=== PATIENT | female | born 2000 | race Caucasian/White ===

== ENCOUNTER 2020-09-17 22:10 | Inpatient (IN) ==
[2020-09-17] MEDS ORDERED: BUTORPHANOL 2 MG/ML VIAL IV PRN (22:18)
[2020-09-17 22:43] LABS: Basophils % 0.1 % (0.0-0.8); Eosinophils % 0.4 % (0.00-10.9); Hematocrit 34.5 VOL% (35.7-47.0); Hemoglobin 11.6 GM/DL (12.0-16.0); Immature Granulocytes % 0.5 %; Immature Granulocytes Absolute 0.05 #; Lymphocytes # 1.9 10*3/uL (1.4-4.0); Lymphocytes % 18.6 % (21.3-54.2); Mean Corpuscular HGB Conc 33.6 GM/DL (32-36); Mean Corpuscular Volume 83.1 FL (87-102); Monocytes % 5.5 % (1.7-12.7); Neutrophils % 74.9 % (38.7-73.9); Platelet Count 187 T/CUMM (130-400); Red Blood Count 4.15 MC/CUMM (3.8-5.5); Red Cell Distribution Width 15.3 % (9.3-17.3); White Blood Count 9.9 T/CUMM (4-12)
[2020-09-17 23:01] LABS: Alanine Aminotransferase 22 U/L (13-56); Albumin 2.9 G/DL (3.4-5.0); Alkaline Phosphatase 219 U/L (45-117); Aspartate Amino Transferase 17 U/L (0-37); Bilirubin,Total < 0.39 MG/DL (0.20-1.00); Blood Urea Nitrogen 9 MG/DL (7-18); Calcium 8.7 MG/DL (8.5-10.1); Carbon Dioxide 22 MMOL/L (21-32); Estimated Glom Filtration Rate 171 ML/MIN; Glucose 93 MG/DL (74-106); Osmolality,Calculated 279.3 MOS/KG (273-304); Potassium 3.9 MMOL/L (3.5-5.1); Sodium 141 MMOL/L (136-145); Total Protein 6.6 G/DL (6.4-8.2)
[2020-09-17] MEDS: LACTATED RINGERS 1,000 ML IV SCH (23:48)
[2020-09-18] MEDS: ONDANSETRON 4 MG/2 ML VIAL IV PRN ×3 (04:13→23:56)
[2020-09-18] MEDS: MEPERIDINE 50 MG/1 ML VIAL IV PRN ×5 (04:16→23:56)
[2020-09-18] MEDS: LACTATED RINGERS 1,000 ML IV SCH ×2 (07:00→16:51)
[2020-09-19] MEDS: MEPERIDINE 50 MG/1 ML VIAL IV PRN ×3 (01:58→06:26)
[2020-09-19] MEDS: OXYTOCIN/LR 20 UNIT/1,000 ML BAG IV SCH (04:18)
[2020-09-19] MEDS ORDERED: CITRIC ACID/SODIUM CITRATE 30 ML UDCUP PO ONE (06:16)
[2020-09-19] MEDS ORDERED: FAMOTIDINE 20 MG/2 ML VIAL IV ONE (07:20)
[2020-09-19] MEDS ORDERED: DEXAMETHASONE 4 MG/1 ML VIAL ONE (07:45)
[2020-09-19] MEDS ORDERED: ONDANSETRON 4 MG/2 ML VIAL ONE (07:45)
[2020-09-19] MEDS ORDERED: BUPIVACAINE SPINAL 0.75% 2 ML AMP SPINAL ONE (07:45)
[2020-09-19] MEDS ORDERED: METHYLERGONOVINE 0.2 MG/1 ML AMP ONE (07:54)
[2020-09-19] MEDS ORDERED: miSOPROStoL 200 MCG TABLET ONE (07:54)
[2020-09-19] MEDS ORDERED: OXYTOCIN/LR 20 UNIT/1,000 ML BAG IV ONE ×3 (07:54→09:42)
[2020-09-19] MEDS ORDERED: CARBOPROST TROMETHAMINE 250 MCG/ML AMP IM ONE (07:54)
[2020-09-19] MEDS ORDERED: ePHEDrine 50 MG/ML VIAL ONE (08:55)
[2020-09-19] MEDS ORDERED: PHENYLEPHRINE 1 MG/10 ML SYRINGE IV ONE ×2 (08:55→09:37)
[2020-09-19] MEDS ORDERED: fentaNYL 100 MCG/2 ML VIAL ONE (09:19)
[2020-09-19 09:22] LABS: Cord Arterial Blood HCO3 24.9 MMOL/L
[2020-09-19] MEDS ORDERED: ACETAMINOPHEN INJ 1,000 MG/100 ML VIAL IV ONE (09:22)
[2020-09-19 09:23] LABS: Cord Venous Blood PCO2 76.6 MMHG; Cord Venous Blood PO2 < 17
[2020-09-19] MEDS ORDERED: DIPH/TET/ACEL PERT BOOSTER VACCINE 0.5 ML VIAL IM ONE (09:42)
[2020-09-19] MEDS ORDERED: LANOLIN 50% CREAM 0.3 OZ TUBE TOP PRN (09:42)
[2020-09-19] MEDS ORDERED: oxyCODONE/ACETAMINOPHEN 5-325 MG TABLET PO PRN (09:42)
[2020-09-19] MEDS ORDERED: HYDROCORTISONE 2.5% RECTAL CREAM 30 GM TUBE TOP PRN (09:42)
[2020-09-19] MEDS ORDERED: ONDANSETRON 4 MG/2 ML VIAL IV PRN (09:42)
[2020-09-19] MEDS ORDERED: WITCH HAZEL PADS 100/JAR TOP PRN (09:42)
[2020-09-19] MEDS ORDERED: RHO(D) IMMUNE GLOBULIN 300 MCG SYRINGE IM ONE (09:42)
[2020-09-19] MEDS ORDERED: MEASLES/MUMPS/RUBELLA VACCINE 0.5 ML VIAL SUBCUT ONE (09:42)
[2020-09-19] MEDS ORDERED: BENZOCAINE 20%/MENTHOL 0.5% SPRAY 56 GM CAN TOP PRN (09:42)
[2020-09-19] MEDS ORDERED: ACETAMINOPHEN 325 MG TABLET PO PRN (09:42)
[2020-09-19] MEDS ORDERED: BISACODYL 10 MG SUPP RECTAL PRN (09:42)
[2020-09-19] MEDS ORDERED: IBUPROFEN 800 MG TABLET PO PRN (09:42)
[2020-09-19] MEDS: LACTATED RINGERS 1,000 ML IV SCH ×3 (10:36→18:27)
[2020-09-19] MEDS: ACETAMINOPHEN 500 MG TABLET PO SCH (18:15)
[2020-09-20] MEDS: oxyCODONE/ACETAMINOPHEN 5-325 MG TABLET PO PRN ×4 (00:30→19:30)
[2020-09-20 05:48] LABS: Basophils % 0.1 % (0.0-0.8); Eosinophils # 0.1 10*3/uL (0.0-0.87); Eosinophils % 0.4 % (0.00-10.9); Hematocrit 31.4 VOL% (35.7-47.0); Hemoglobin 10.5 GM/DL (12.0-16.0); Immature Granulocytes % 0.6 %; Immature Granulocytes Absolute 0.07 #; Lymphocytes # 2.3 10*3/uL (1.4-4.0); Lymphocytes % 18.9 % (21.3-54.2); Mean Corpuscular HGB Conc 33.4 GM/DL (32-36); Mean Corpuscular Volume 84.2 FL (87-102); Mean Platelet Volume 11.1 FL (9.6-12.0); Monocytes % 6.2 % (1.7-12.7); Neutrophils % 73.8 % (38.7-73.9); Platelet Count 161 T/CUMM (130-400); Red Blood Count 3.73 MC/CUMM (3.8-5.5); Red Cell Distribution Width 15.4 % (9.3-17.3); White Blood Count 12.3 T/CUMM (4-12)
[2020-09-20] MEDS: MULTIVITAMIN (PRENATAL) TABLET PO SCH (08:00)
[2020-09-20] MEDS: buPROPion XL 150 MG TABLET PO SCH (08:00)
[2020-09-20] MEDS: DOCUSATE SODIUM 100 MG CAPSULE PO SCH ×4 (08:00→20:38)
[2020-09-20] MEDS: MAGNESIUM HYDROXIDE SUSP 30 ML UDCUP PO PRN ×2 (09:06→19:30)
[2020-09-20] MEDS: SIMETHICONE CHEW 80 MG TABLET PO PRN (09:06)
[2020-09-20] MEDS: LACTATED RINGERS 1,000 ML IV SCH (18:12)
[2020-09-20] MEDS: OXYTOCIN/LR 20 UNIT/1,000 ML BAG IV SCH (18:13)
[2020-09-20] MEDS: ACETAMINOPHEN 500 MG TABLET PO SCH (18:14)
[2020-09-21] MEDS: oxyCODONE/ACETAMINOPHEN 5-325 MG TABLET PO PRN ×2 (01:45→08:40)
[2020-09-21 08:29] VITALS: BP 136/76
[2020-09-21] MEDS: SIMETHICONE CHEW 80 MG TABLET PO PRN (08:40)
[2020-09-21] MEDS: MULTIVITAMIN (PRENATAL) TABLET PO SCH (08:40)
[2020-09-21] MEDS: buPROPion XL 150 MG TABLET PO SCH (08:40)
[2020-09-21] MEDS: MAGNESIUM HYDROXIDE SUSP 30 ML UDCUP PO PRN (08:40)
[2020-09-21] MEDS: DOCUSATE SODIUM 100 MG CAPSULE PO SCH (08:40)
== END 2020-09-21 13:35 | disposition home or self-care (01) | DRG 788 ==
LOC: N.LDOUT 22:10 → N.LD 22:11 → N.OB 09-19 17:50
PROVIDERS: ADMIT Specialist; ATTEND Specialist
PROC: LDCSECT (ICD-10-PCS; 2020-09-19 08:30)

== ENCOUNTER 2020-10-29 07:14 | Inpatient (IN) ==
[2020-10-29] MEDS ORDERED: ONDANSETRON 4 MG/2 ML VIAL IV STA (07:32)
[2020-10-29] MEDS ORDERED: SODIUM CHLORIDE 0.9% 1,000 ML IV STA (07:32)
[2020-10-29] MEDS ORDERED: HYDROmorphone 2 MG/1 ML VIAL IV STA ×3 (07:50→10:42)
[2020-10-29 07:58] LABS: Eosinophils # 0.1 10*3/uL (0.0-0.87); Eosinophils % 1.4 % (0.00-10.9); Hematocrit 39.1 VOL% (35.7-47.0); Hemoglobin 12.8 GM/DL (12.0-16.0); Immature Granulocytes % 0.4 %; Immature Granulocytes Absolute 0.03 #; Lymphocytes # 1.6 10*3/uL (1.4-4.0); Lymphocytes % 20.4 % (21.3-54.2); Mean Corpuscular HGB Conc 32.7 GM/DL (32-36); Mean Corpuscular Volume 83.2 FL (87-102); Mean Platelet Volume 10.8 FL (9.6-12.0); Monocytes % 3.9 % (1.7-12.7); Neutrophils % 73.9 % (38.7-73.9); Platelet Count 236 T/CUMM (130-400); Red Cell Distribution Width 14.9 % (9.3-17.3)
[2020-10-29 08:20] LABS: Alanine Aminotransferase 67 U/L (13-56); Albumin 3.7 G/DL (3.4-5.0); Alkaline Phosphatase 97 U/L (45-117); Aspartate Amino Transferase 24 U/L (0-37); Bilirubin,Total < 0.39 MG/DL (0.20-1.00); Blood Urea Nitrogen 13 MG/DL (7-18); Calcium 9.2 MG/DL (8.5-10.1); Carbon Dioxide 27 MMOL/L (21-32); Estimated Glom Filtration Rate 127 ML/MIN; Glucose 108 MG/DL (74-106); Osmolality,Calculated 281.3 MOS/KG (273-304); Potassium 4.3 MMOL/L (3.5-5.1); Sodium 141 MMOL/L (136-145); Total Protein 7.5 G/DL (6.4-8.2)
[2020-10-29 08:56] LABS: Bacteria,Urine Occasional /HPF (Few); Bilirubin,Urine Negative (Negative); Blood, Urine Moderate mg/dL (Negative); Glucose,Urine (UA) Negative (Negative); Ketones,Urine Negative (Negative); Mucus,Urine Occasional /LPF (Occasional); Nitrite,Urine Negative (Negative); Protein,Urine Negative; RBC,Urine 9 /HPF (0-4); Squamous Epithelial Cell,Urine Many /HPF (0-10); Urine Appearance Slightly Hazy (Clear); Urine Color Yellow (Yellow); Urine Specific Gravity 1.018 (1.001-1.035); Urine Urobilinogen < 2.0 EU/DL (0.2-1.0)
[2020-10-29] MEDS ORDERED: TISSUE ADHESIVE 1 EACH APPLICATOR TOP ONE (10:28)
[2020-10-29] MEDS ORDERED: MIDAZOLAM 2 MG/2 ML VIAL ONE (10:35)
[2020-10-29] MEDS ORDERED: fentaNYL 100 MCG/2 ML VIAL ONE (10:35)
[2020-10-29] MEDS ORDERED: LACTATED RINGERS 1,000 ML IV SCH (11:30)
[2020-10-29] MEDS ORDERED: propofoL 200 MG/20 ML VIAL IV ONE (11:36)
[2020-10-29] MEDS ORDERED: ACETAMINOPHEN INJ 1,000 MG/100 ML VIAL IV ONE (11:36)
[2020-10-29] MEDS ORDERED: ONDANSETRON 4 MG/2 ML VIAL ONE (11:36)
[2020-10-29] MEDS ORDERED: LIDOCAINE 2% 5 ML VIAL ONE (11:36)
[2020-10-29] MEDS ORDERED: GLYCOPYRROLATE 0.4 MG/2 ML VIAL ONE (11:36)
[2020-10-29] MEDS ORDERED: ROCURONIUM 50 MG/5 ML VIAL IV ONE (11:36)
[2020-10-29] MEDS ORDERED: DEXAMETHASONE 4 MG/1 ML VIAL ONE (11:36)
[2020-10-29] MEDS ORDERED: SEVOFLURANE 1 UNIT/15 MINUTE INH ONE ×2 (11:36→12:23)
[2020-10-29] MEDS ORDERED: ePHEDrine 50 MG/ML VIAL ONE (11:39)
[2020-10-29] MEDS ORDERED: ACETAMINOPHEN 325 MG TABLET PO PRN (12:30)
[2020-10-29] MEDS ORDERED: ONDANSETRON 4 MG/2 ML VIAL IV PRN (12:30)
[2020-10-29] MEDS: HYDROmorphone 2 MG/1 ML VIAL IV PRN ×2 (13:59→20:02)
[2020-10-29] MEDS: PIPERACILLIN/TAZOBACTAM 3,375 MG in SODIUM CHLORIDE 0.9% 100 ML IV SCH ×2 (15:21→21:20)
[2020-10-29] MEDS: SERTRALINE 50 MG TABLET PO SCH (16:33)
[2020-10-29] MEDS: LACTATED RINGERS 1,000 ML IV SCH (16:34)
[2020-10-29] MEDS ORDERED: SIMETHICONE CHEW 125 MG TABLET PO PRN (18:08)
[2020-10-30] MEDS: HYDROmorphone 2 MG/1 ML VIAL IV PRN ×4 (00:21→21:01)
[2020-10-30 05:16] LABS: Eosinophils % 0.4 % (0.00-10.9); Hematocrit 34.6 VOL% (35.7-47.0); Hemoglobin 11.2 GM/DL (12.0-16.0); Immature Granulocytes % 0.2 %; Immature Granulocytes Absolute 0.01 #; Lymphocytes % 20.2 % (21.3-54.2); Mean Corpuscular HGB Conc 32.4 GM/DL (32-36); Mean Corpuscular Volume 83.8 FL (87-102); Monocytes % 6.6 % (1.7-12.7); Neutrophils % 72.6 % (38.7-73.9); Platelet Count 176 T/CUMM (130-400); Red Blood Count 4.13 MC/CUMM (3.8-5.5); Red Cell Distribution Width 14.9 % (9.3-17.3); White Blood Count 5.2 T/CUMM (4-12)
[2020-10-30 05:32] LABS: PT Patient Result 10.8 SECS (10.5-12.0)
[2020-10-30 05:34] LABS: Bilirubin,Total 2.4 MG/DL (0.20-1.00); Calcium 8.5 MG/DL (8.5-10.1); Osmolality,Calculated 274.5 MOS/KG (273-304); Potassium 3.7 MMOL/L (3.5-5.1); Total Protein 6.3 G/DL (6.4-8.2)
[2020-10-30] MEDS: LACTATED RINGERS 1,000 ML IV SCH ×2 (06:32→17:43)
[2020-10-30] MEDS: PIPERACILLIN/TAZOBACTAM 3,375 MG in SODIUM CHLORIDE 0.9% 100 ML IV SCH ×2 (06:32→17:37)
[2020-10-30] MEDS ORDERED: INDOMETHACIN SUPP 50 MG SUPP RECTAL ONE (08:00)
[2020-10-30] MEDS ORDERED: LACTATED RINGERS 1,000 ML IV SCH (08:00)
[2020-10-30] MEDS ORDERED: buPROPion XL 150 MG TABLET PO SCH (09:00)
[2020-10-30] MEDS ORDERED: SERTRALINE 50 MG TABLET PO SCH (09:00)
[2020-10-30] MEDS ORDERED: MIDAZOLAM 2 MG/2 ML VIAL ONE (12:25)
[2020-10-30] MEDS ORDERED: propofoL 200 MG/20 ML VIAL IV ONE (12:25)
[2020-10-30] MEDS ORDERED: fentaNYL 100 MCG/2 ML VIAL ONE (12:25)
[2020-10-30] MEDS ORDERED: DEXAMETHASONE 4 MG/1 ML VIAL ONE (12:25)
[2020-10-30] MEDS ORDERED: ROCURONIUM 50 MG/5 ML VIAL IV ONE (12:25)
[2020-10-30] MEDS ORDERED: SEVOFLURANE 1 UNIT/15 MINUTE INH ONE ×2 (12:25→14:07)
[2020-10-30] MEDS ORDERED: ONDANSETRON 4 MG/2 ML VIAL ONE (12:25)
[2020-10-30] MEDS ORDERED: LIDOCAINE 2% 5 ML VIAL ONE (12:25)
[2020-10-30] MEDS ORDERED: SUCCINYLCHOLINE 200 MG/10 ML VIAL ONE (12:47)
[2020-10-30] MEDS ORDERED: PROMETHAZINE 25 MG/1 ML VIAL IM PRN (15:10)
[2020-10-30] MEDS: SERTRALINE 50 MG TABLET PO SCH (17:40)
[2020-10-30] MEDS: PANTOPRAZOLE 40 MG TABLET PO SCH (17:40)
[2020-10-30] MEDS ORDERED: ZALEPLON 5 MG CAPSULE PO PRN (21:46)
[2020-10-31] MEDS: LACTATED RINGERS 1,000 ML IV SCH (00:19)
[2020-10-31] MEDS: PIPERACILLIN/TAZOBACTAM 3,375 MG in SODIUM CHLORIDE 0.9% 100 ML IV SCH ×2 (01:07→08:32)
[2020-10-31 07:41] LABS: Eosinophils % 0.7 % (0.00-10.9); Hematocrit 33.5 VOL% (35.7-47.0); Lymphocytes # 1.3 10*3/uL (1.4-4.0); Mean Corpuscular HGB Conc 32.8 GM/DL (32-36); Mean Corpuscular Volume 83.5 FL (87-102); Mean Platelet Volume 10.8 FL (9.6-12.0); Neutrophils % 62.1 % (38.7-73.9); Platelet Count 142 T/CUMM (130-400); Red Blood Count 4.01 MC/CUMM (3.8-5.5); Red Cell Distribution Width 14.6 % (9.3-17.3); White Blood Count 4.4 T/CUMM (4-12)
[2020-10-31 08:01] LABS: Albumin 2.9 G/DL (3.4-5.0); Calcium 8.5 MG/DL (8.5-10.1)
[2020-10-31] MEDS: PANTOPRAZOLE 40 MG TABLET PO SCH (08:34)
[2020-10-31] MEDS: SERTRALINE 50 MG TABLET PO SCH (08:34)
[2020-10-31 12:18] VITALS: BP 114/48
== END 2020-10-31 15:20 | disposition home or self-care (01) | DRG 769 ==
LOC: N.ED 07:14 → N.5E 13:49 → N.SDS 13:49 → N.5E 13:50
PROVIDERS: ADMIT Student in an Organized Health Care Education/Training Program; ATTEND Student in an Organized Health Care Education/Training Program
PROC: LAPCHOL (2020-10-29 11:10)
PROC: ERCPWSP (ICD-10-PCS; 2020-10-30 12:05)